=== PATIENT | male | born 1970 | race Caucasian/White ===

== ENCOUNTER 2017-03-03 18:39 | Emergency (ER) | payer BC ==
[~2017-03-03] VITALS: Ht 182.9 cm; Wt 106.6 kg
[2017-03-03 18:53] VITALS: BP_SYST 139
--- NOTE | 2017-03-03 18:57 | NUR ---
Ambulatory to bed 3, report given to assistant shift supervisor
--- NOTE | 2017-03-03 19:04 | NUR ---
Patient arrived to ED a/o x 4 with c/o flu like symptoms x 3 days. Patient reports fever at home. Highest recorded temp of 100.4. Took dayquil and advil. c/o generalized malaise. Body aches 5/10. Skin diaphoretic. Denies N/V. Denies ABD pain. States he feels dehydrated. at bedside. Will continue to monitor.
--- NOTE | 2017-03-03 19:10 | NUR ---
ED PILLING MACHINE OPERATOR Mann at bedside for medical evaluation.
--- NOTE | 2017-03-03 19:30 | NUR ---
Laboratory at bedside.
[2017-03-03 19:36] LABS: BILIRUBIN,URINE NEGATIVE (NEGATIVE); BLOOD, URINE NEGATIVE (NEGATIVE); CLARITY/URINE CLEAR (CLEAR); COLOR,URINE YELLOW (YELLOW); GLUCOSE,URINE 1+ (NEGATIVE); KETONES,URINE 1+ (NEGATIVE); LEUKOCYTE ESTERASE ,URINE NEGATIVE (NEGATIVE); NITRITE, URINE NEGATIVE (NEGATIVE); PROTEIN URINE NEGATIVE (NEGATIVE)
[2017-03-03 19:44] LABS: BASOPHILS # (AUTO) 0.1 K/uL (0.0-0.2); BASOPHILS % (AUTO) 0.8 % (0.0-2.0); EOSINOPHILS % (AUTO) 0.3 % (0.0-4.0); HEMATOCRIT 44.5 % (36-54); HEMOGLOBIN 14.9 g/dL (14.0-18.0); LYMPHOCYTES # (AUTO) 1.1 K/uL (1.0-5.5); MEAN CORPUSCULAR HEMOGLOBIN 29 pg (27-31); MEAN CORPUSCULAR HGB CONC 33 % (32-36); MEAN CORPUSCULAR VOLUME 88 fL (79.0-98.0); MONOCYTES # (AUTO) 0.6 K/uL (0.0-1.0); MONOCYTES % (AUTO) 4.2 % (1.7-9.3); NEUTROPHILS # (AUTO) 12.4 K/uL (1.8-7.7); NEUTROPHILS % (AUTO) 86.7 % (40.0-70.0); PLATELET COUNT (AUTO) 252 K/uL (130-430); RED BLOOD CELL COUNT(AUTO) 5.07 MIL/uL (4.2-6.2); RED CELL DISTRIBUTION WIDTH 12.4 % (9.0-15.0); WHITE BLOOD COUNT (AUTO) 14.2 K/uL (4.8-10.8)
[2017-03-03] MEDS ORDERED: ACETAMINOPHEN/CODEINE 300 MG-30 MG TABLET PO ONE (19:45)
[2017-03-03 19:57] LABS: CHLORIDE 105 mmol/L (98-107); CREATININE 1.05 mg/dL (0.55-1.30); GLUCOSE 176 mg/dL (70-99); POTASSIUM 4.2 mmol/L (3.5-5.1); SODIUM SERUM 134 mmol/L (136-145); UREA NITROGEN, BLOOD 12 mg/dL (8-21)
[2017-03-03 19:59] LABS: ANION GAP < 3 (5-15); GFR AFRICAN AMERICAN 97 mL/min (>90)
[2017-03-03 20:02] LABS: ALANINE AMINOTRANSFERASE 52 U/L (12-78); ALBUMIN 3.5 g/dL (3.4-4.8); ASPARTATE AMINOTRANSFERASE 17 U/L (10-37); TOTAL BILIRUBIN 1.5 mg/dL (0.0-1.0); TOTAL PROTEIN, SERUM 7.7 g/dL (6.4-8.3)
--- NOTE | 2017-03-03 20:10 | NUR ---
Patient reports pain 2/10 30 minutes after administration of Tylenol with codeine. No adverse reactions noted. Will continue to monitor.
[2017-03-03] MEDS ORDERED: LEVOFLOXACIN 500 MG TABLET PO ONE (21:15)
--- NOTE | 2017-03-03 21:15 | NUR ---
Laboratory at bedside.
[2017-03-03 21:35] VITALS: BP_SYST 129
--- NOTE | 2017-03-03 21:35 | NUR ---
Patient given written and verbal discharge instructions and verbalizes understanding. ER MD discussed with patient the results and treatment provided. Patient in stable condition. ID arm band removed. Rx of levaquin, tylenol with codeine and motrin given. Patient educated on pain management and to follow up with PMD. Pain Scale 2/10 tolerable for patient. Opportunity for questions provided and answered.
--- NOTE | 2017-03-04 09:12 | NUR ---
Pharmacy called to verify
== END 2017-03-03 21:35 | disposition home or self-care (01) ==
LOC: SED 18:39
DX: J18.1 Lobar pneumonia, unspecified organism (principal); D72.829 Elevated white blood cell count, unspecified; I10 Essential (primary) hypertension; E78.5 Hyperlipidemia, unspecified; Z71.6 Tobacco abuse counseling; Z88.0 Allergy status to penicillin; Z88.1 Allergy status to other antibiotic agents
CPT/HCPCS: 36415; 71010; 80053; 81003; 83605; 84484; 85025; 86710; 87040-TC; 93005; 99285

== ENCOUNTER 2017-03-06 11:59 | Emergency (ER) | payer BC ==
[~2017-03-06] VITALS: Ht 182.9 cm; Wt 102.1 kg
[2017-03-06 12:03] VITALS: BP_SYST 130
--- NOTE | 2017-03-06 12:03 | NUR ---
Pt placed to ER bed 05, Pt report given to SHARDA Lipscomb. Pt c/o body aches, headache, fever, productive coughing x 5 days. Pt currently afebrile, NAD.
--- NOTE | 2017-03-06 12:05 | NUR ---
ER at bedside examining patient.
[2017-03-06] MEDS ORDERED: NACL 0.9% 1,000 ML IV ONE (12:10)
[2017-03-06 12:29] LABS: BASOPHILS % (AUTO) 0.4 % (0.0-2.0); EOSINOPHILS # (AUTO) 0.2 K/uL (0.0-0.4); EOSINOPHILS % (AUTO) 2.9 % (0.0-4.0); HEMATOCRIT 38.4 % (36-54); HEMOGLOBIN 12.6 g/dL (14.0-18.0); LYMPHOCYTES # (AUTO) 0.9 K/uL (1.0-5.5); LYMPHOCYTES % (AUTO) 11.2 % (20.5-51.5); MEAN CORPUSCULAR HEMOGLOBIN 29 pg (27-31); MEAN CORPUSCULAR HGB CONC 33 % (32-36); MEAN CORPUSCULAR VOLUME 88 fL (79.0-98.0); MONOCYTES # (AUTO) 0.6 K/uL (0.0-1.0); MONOCYTES % (AUTO) 8.2 % (1.7-9.3); NEUTROPHILS # (AUTO) 6.1 K/uL (1.8-7.7); NEUTROPHILS % (AUTO) 77.3 % (40.0-70.0); PLATELET COUNT (AUTO) 298 K/uL (130-430); RED BLOOD CELL COUNT(AUTO) 4.35 MIL/uL (4.2-6.2); RED CELL DISTRIBUTION WIDTH 12.3 % (9.0-15.0); WHITE BLOOD COUNT (AUTO) 7.8 K/uL (4.8-10.8)
[2017-03-06] MEDS ORDERED: IPRATROPIUM BROM 0.5 MG/2.5 ML VIAL.NEB (ATROVENT) IH ONE (12:30)
[2017-03-06] MEDS ORDERED: ALBUTEROL SULFATE 0.083% 2.5 MG/3 ML VIAL.NEB IH ONE (12:30)
[2017-03-06 12:41] LABS: CALCIUM 8.7 mg/dL (8.4-11.0); CREATININE 1.02 mg/dL (0.55-1.30); POTASSIUM 3.5 mmol/L (3.5-5.1)
[2017-03-06 12:44] LABS: PROTHROMBIN TIME 11.2 SECS (9.5-12.5)
[2017-03-06 12:45] LABS: ALBUMIN 2.7 g/dL (3.4-4.8); TOTAL BILIRUBIN 0.9 mg/dL (0.0-1.0); TOTAL PROTEIN, SERUM 7.3 g/dL (6.4-8.3)
--- NOTE | 2017-03-06 13:15 | NUR ---
Verbal order to cancel NS [address] Mata
[2017-03-06 14:05] VITALS: BP_SYST 136
--- NOTE | 2017-03-06 14:05 | NUR ---
Patient given written and verbal discharge instructions and verbalizes understanding. ER MD discussed with patient the results and treatment provided. Patient in stable condition. ID arm band removed. No RX given. Patient educated on pain management and to follow up with PMD. Pain Scale 0/10. Opportunity for questions provided and answered.
== END 2017-03-06 14:05 | disposition home or self-care (01) ==
LOC: SED 11:59
DX: J18.8 Other pneumonia, unspecified organism (principal); I10 Essential (primary) hypertension; E78.5 Hyperlipidemia, unspecified; Z88.0 Allergy status to penicillin; Z88.1 Allergy status to other antibiotic agents
CPT/HCPCS: 36415; 80053; 82150-TC; 83690-TC; 85025; 85610-TC; 94640; 99284

== ENCOUNTER 2020-02-23 19:41 | Emergency (ER) | payer BC ==
[~2020-02-23] VITALS: Ht 180.3 cm; Wt 106.6 kg
[2020-02-23 20:05] VITALS: BP_SYST 162
[2020-02-23] MEDS ORDERED: ASPIRIN 81 MG TAB.CHEW PO ONE (20:45)
[2020-02-23 21:33] LABS: BASOPHILS % (AUTO) 0.3 % (0.0-2.0); EOSINOPHILS # (AUTO) 0.1 K/uL (0.0-0.4); EOSINOPHILS % (AUTO) 0.8 % (0.0-4.0); HEMATOCRIT 43.6 % (36-54); HEMOGLOBIN 14.7 g/dL (14.0-18.0); LYMPHOCYTES # (AUTO) 3.1 K/uL (1.0-5.5); LYMPHOCYTES % (AUTO) 40.5 % (20.5-51.5); MEAN CORPUSCULAR HEMOGLOBIN 30 pg (27-31); MEAN CORPUSCULAR HGB CONC 34 % (32-36); MEAN CORPUSCULAR VOLUME 89 fL (79.0-98.0); MONOCYTES # (AUTO) 0.7 K/uL (0.0-1.0); MONOCYTES % (AUTO) 9.2 % (1.7-9.3); NEUTROPHILS # (AUTO) 3.8 K/uL (1.8-7.7); NEUTROPHILS % (AUTO) 49.2 % (40.0-70.0); PLATELET COUNT (AUTO) 270 K/uL (130-430); RED BLOOD CELL COUNT(AUTO) 4.93 MIL/uL (4.2-6.2); RED CELL DISTRIBUTION WIDTH 13.8 % (9.0-15.0); WHITE BLOOD COUNT (AUTO) 7.7 K/uL (4.8-10.8)
[2020-02-23 21:40] LABS: CALCIUM 9.4 mg/dL (8.4-11.0); CREATININE 1.03 mg/dL (0.55-1.30); POTASSIUM 3.8 mmol/L (3.5-5.1)
[2020-02-23] MEDS ORDERED: IOHEXOL 0 ML IV ONE (21:41)
[2020-02-23] MEDS ORDERED: IOHEXOL 350 mgI/mL, 150 ML INFUS..BTL IV ONE (21:42)
[2020-02-23 21:43] LABS: INR 0.9 (0.80-1.20); PROTHROMBIN TIME 9.3 SECS (9.5-12.5)
[2020-02-23 21:46] LABS: ALBUMIN 3.9 g/dL (3.4-4.8); TOTAL BILIRUBIN 0.8 mg/dL (0.0-1.0)
[2020-02-23] MEDS ORDERED: NITROGLYCERIN 1 INCH (GM) OINT. TP ONE (22:00)
[2020-02-23 23:20] VITALS: BP_SYST 135
== END 2020-02-23 23:20 | disposition left against medical advice (07) ==
LOC: SED 19:41
DX: R07.89 Other chest pain (principal); R06.00 Dyspnea, unspecified; I10 Essential (primary) hypertension; E78.5 Hyperlipidemia, unspecified; F17.210 Nicotine dependence, cigarettes, uncomplicated; Z88.0 Allergy status to penicillin; Z88.1 Allergy status to other antibiotic agents
CPT/HCPCS: 36415; 71045; 71275; 80053; 82550; 83880; 84484; 85025; 85610; 85730; 93005; 99285; Q9967